=== PATIENT | female | born 1960 | race Caucasian/White ===

== ENCOUNTER 2018-02-26 10:47 | Emergency (ER) | payer MEDICAID ==
[~2018-02-26] VITALS: Ht 165.1 cm; Wt 104.3 kg
[~2018-02-26 10:47] MED LIST: CRESTOR; GABAPENTIN; NAPROXEN; PREDNISONE; WELLBUTRIN; ZOLOFT; ZOVIRAX; ZYPREXA
[2018-02-26 10:49] VITALS: BP_SYST 107
[2018-02-26 11:27] LABS: BILIRUBIN,URINE NEGATIVE (NEGATIVE); BLOOD, URINE 2+ (NEGATIVE); CLARITY/URINE SLIGHTLY HAZY (CLEAR); COLOR,URINE YELLOW (YELLOW); GLUCOSE,URINE NEGATIVE (NEGATIVE); KETONES,URINE NEGATIVE (NEGATIVE); LEUKOCYTE ESTERASE ,URINE TRACE (NEGATIVE); NITRITE, URINE POSITIVE (NEGATIVE); PROTEIN URINE NEGATIVE (NEGATIVE); UROBILINOGEN,URINE 0.2 (0.2-1.0)
[2018-02-26 11:32] LABS: BACTERIA,URINE FEW /HPF (None Seen); RBC,URINE 0-3 /HPF (0-3)
[2018-02-26 11:33] LABS: MUCUS,URINE None Seen /LPF (None Seen)
[2018-02-26 11:34] LABS: BASOPHILS % (AUTO) 0.1 % (0.0-2.0); EOSINOPHILS % (AUTO) 0.1 % (0.0-4.0); HEMATOCRIT 41.1 % (36-48); HEMOGLOBIN 13.7 g/dL (12.0-16.0); LYMPHOCYTES # (AUTO) 1.5 K/uL (1.0-5.5); LYMPHOCYTES % (AUTO) 12.7 % (20.5-51.5); MEAN CORPUSCULAR HEMOGLOBIN 31 pg (27-31); MEAN CORPUSCULAR HGB CONC 33 % (32-36); MEAN CORPUSCULAR VOLUME 91 fL (79.0-98.0); MONOCYTES # (AUTO) 0.6 K/uL (0.0-1.0); MONOCYTES % (AUTO) 5.1 % (1.7-9.3); NEUTROPHILS # (AUTO) 9.7 K/uL (1.8-7.7); PLATELET COUNT (AUTO) 158 K/uL (130-430); RED BLOOD CELL COUNT(AUTO) 4.49 MIL/uL (4.2-6.2); RED CELL DISTRIBUTION WIDTH 12.4 % (9.0-15.0); WHITE BLOOD COUNT (AUTO) 11.8 K/uL (4.8-10.8)
[2018-02-26 11:42] LABS: CALCIUM 9.4 mg/dL (8.4-11.0); CREATININE 0.63 mg/dL (0.55-1.30); POTASSIUM 3.9 mmol/L (3.5-5.1)
[2018-02-26 11:46] LABS: PROTHROMBIN TIME 10.3 SECS (9.5-12.5)
[2018-02-26 11:48] LABS: ALBUMIN 3.9 g/dL (3.4-4.8); TOTAL BILIRUBIN 0.2 mg/dL (0.0-1.0)
[2018-02-26] MEDS ORDERED: cefTRIAXone 1 GM in LIDOCAINE 1%, 20 ML MDV 2.1 ML IM ONE (12:15)
[2018-02-26 12:22] VITALS: BP_SYST 111
== END 2018-02-26 12:22 | disposition home or self-care (01) ==
LOC: SED 10:47
DX: N12 Tubulo-interstitial nephritis, not specified as acute or chronic (principal); J44.9 Chronic obstructive pulmonary disease, unspecified; E11.9 Type 2 diabetes mellitus without complications; F31.9 Bipolar disorder, unspecified; Z88.5 Allergy status to narcotic agent
CPT/HCPCS: 36415; 74176; 80053; 81000; 81025; 83690; 85025; 85610; 85730; 87086; 96372; 99285; J0696; J2001; 87186-TC

== ENCOUNTER 2018-07-27 15:06 | Inpatient (IN) | payer MEDICAID ==
[~2018-07-27] VITALS: Ht 157.5 cm; Wt 102.5 kg
[2018-07-27 15:10] VITALS: BP_SYST 132
[2018-07-27 16:11] LABS: BASOPHILS # (AUTO) 0.1 K/uL (0.0-0.2); BASOPHILS % (AUTO) 0.7 % (0.0-2.0); EOSINOPHILS % (AUTO) 0.1 % (0.0-4.0); HEMATOCRIT 43.3 % (36-48); HEMOGLOBIN 14.2 g/dL (12.0-16.0); LYMPHOCYTES % (AUTO) 12.8 % (20.5-51.5); MEAN CORPUSCULAR HEMOGLOBIN 30 pg (27-31); MEAN CORPUSCULAR HGB CONC 33 % (32-36); MEAN CORPUSCULAR VOLUME 92 fL (79.0-98.0); MONOCYTES # (AUTO) 0.3 K/uL (0.0-1.0); MONOCYTES % (AUTO) 3.6 % (1.7-9.3); NEUTROPHILS # (AUTO) 6.8 K/uL (1.8-7.7); NEUTROPHILS % (AUTO) 82.8 % (40.0-70.0); PLATELET COUNT (AUTO) 155 K/uL (130-430); RED BLOOD CELL COUNT(AUTO) 4.72 MIL/uL (4.2-6.2); RED CELL DISTRIBUTION WIDTH 12.6 % (9.0-15.0); WHITE BLOOD COUNT (AUTO) 8.2 K/uL (4.8-10.8)
[2018-07-27 16:18] LABS: CALCIUM 9.5 mg/dL (8.4-11.0); CREATININE 0.71 mg/dL (0.55-1.30); POTASSIUM 3.9 mmol/L (3.5-5.1)
[2018-07-27 16:23] LABS: ALBUMIN 4.4 g/dL (3.4-4.8); TOTAL BILIRUBIN 0.4 mg/dL (0.0-1.0)
[2018-07-27] MEDS ORDERED: NACL 0.9% 1,000 ML IV ONE ×2 (16:55→20:30)
[2018-07-27] MEDS ORDERED: fentaNYL CITRATE/PF 100 MCG/2 ML AMP IVP ONE ×2 (17:00→21:15)
[2018-07-27] MEDS ORDERED: DIPHENHYDRAMINE INJ 50 MG/ML VIAL IVP ONE (17:00)
[2018-07-27] MEDS ORDERED: METOCLOPRAMIDE HCL 10 MG/2 ML VIAL IVP ONE (17:00)
[2018-07-27] MEDS ORDERED: PANTOPRAZOLE SODIUM 40 MG/VIAL (PROTONIX) IVP ONE (17:45)
[2018-07-27 17:53] LABS: BILIRUBIN,URINE NEGATIVE (NEGATIVE); CLARITY/URINE CLEAR (CLEAR); COLOR,URINE YELLOW (YELLOW); GLUCOSE,URINE NEGATIVE (NEGATIVE); KETONES,URINE 1+ (NEGATIVE); LEUKOCYTE ESTERASE ,URINE 1+ (NEGATIVE); NITRITE, URINE POSITIVE (NEGATIVE); PROTEIN URINE TRACE (NEGATIVE); UROBILINOGEN,URINE 0.2 (0.2-1.0)
[2018-07-27 18:00] LABS: BLOOD, URINE TRACE (NEGATIVE)
[2018-07-27 18:01] LABS: BACTERIA,URINE MANY /HPF (None Seen); MUCUS,URINE None Seen /LPF (None Seen); RBC,URINE 0-3 /HPF (0-3)
[2018-07-27] MEDS ORDERED: cefTRIAXone 1 GM IVPB PREMIX 50 ML IV ONE (18:15)
[2018-07-27] MEDS ORDERED: ONDANSETRON HCL 4 MG/2 ML VIAL IVP ONE ×2 (20:15→21:15)
[2018-07-27] MEDS ORDERED: PRAV80TA PO (20:56)
[2018-07-27] MEDS ORDERED: PRAM0.253 PO (20:56)
[2018-07-27] MEDS ORDERED: SITA100T11 PO (20:56)
[2018-07-27] MEDS ORDERED: ESCI10TA PO (20:56)
[2018-07-27] MEDS ORDERED: GABA800T PO (20:56)
[2018-07-27] MEDS ORDERED: BUSP10TA3 PO (20:56)
[2018-07-27] MEDS ORDERED: WELSR150 PO (20:56)
[2018-07-27] MEDS ORDERED: ARIP20TA4 PO (20:56)
[2018-07-27] MEDS ORDERED: CLON0.5T12 PO (20:58)
[2018-07-27] MEDS ORDERED: HYDR-3610 PO (20:58)
[2018-07-27] MEDS ORDERED: CARI350T27 PO (20:58)
[2018-07-27] MEDS ORDERED: INSULIN REGULAR, HUMAN 100 UNITS/ML, 10 ML VIAL (novoLIN R) SUBCUT PRN (21:15)
[2018-07-27] MEDS ORDERED: ONDANSETRON HCL 4 MG/2 ML VIAL IVP PRN (21:15)
[2018-07-27] MEDS ORDERED: MORPHINE 4 MG/ML INJ. SYRINGE IVP ONE (21:15)
[2018-07-27 21:46] VITALS: BP_SYST 152
[2018-07-27] MEDS ORDERED: METOCLOPRAMIDE HCL 10 MG/2 ML VIAL IVP PRN (23:15)
[2018-07-27] MEDS ORDERED: LevALBUTEROL HCL 1.25 MG/0.5 ML *CONC.* VIAL.NEB (XOPENEX CONC.) INH PRN (23:15)
[2018-07-27] MEDS ORDERED: NICOTINE 21 MG/24 HR PATCH.TD24 TD SCH (23:15)
[2018-07-27] MEDS ORDERED: DIPHENHYDRAMINE INJ 50 MG/ML VIAL IVP PRN (23:15)
[2018-07-27] MEDS: HYDROmorphone 2 MG/ML VIAL IVP PRN (23:23)
[2018-07-27 23:41] VITALS: BP_SYST 152
[2018-07-28 00:22] VITALS: BP_SYST 153
[2018-07-28] MEDS ORDERED: KCL 20 mEq in 100 mL (PREMIX) 100 ML IV ONE (01:24)
[2018-07-28] MEDS: POTASSIUM CHLORIDE 20 MEQ in 0.45% NACL 1,000 ML IV SCH ×3 (01:29→11:09)
[2018-07-28] MEDS: GABAPENTIN 400 MG CAPSULE PO SCH ×3 (01:31→11:07)
[2018-07-28] MEDS: CARISOPRODOL 350 MG TABLET PO SCH ×2 (05:24→13:09)
[2018-07-28 07:02] LABS: BASOPHILS % (AUTO) 0.5 % (0.0-2.0); EOSINOPHILS % (AUTO) 0.1 % (0.0-4.0); HEMATOCRIT 37.7 % (36-48); HEMOGLOBIN 12.4 g/dL (12.0-16.0); LYMPHOCYTES # (AUTO) 1.9 K/uL (1.0-5.5); LYMPHOCYTES % (AUTO) 20.4 % (20.5-51.5); MEAN CORPUSCULAR HEMOGLOBIN 30 pg (27-31); MEAN CORPUSCULAR HGB CONC 33 % (32-36); MEAN CORPUSCULAR VOLUME 92 fL (79.0-98.0); MONOCYTES # (AUTO) 0.7 K/uL (0.0-1.0); MONOCYTES % (AUTO) 7.7 % (1.7-9.3); NEUTROPHILS # (AUTO) 6.8 K/uL (1.8-7.7); NEUTROPHILS % (AUTO) 71.3 % (40.0-70.0); PLATELET COUNT (AUTO) 137 K/uL (130-430); RED CELL DISTRIBUTION WIDTH 12.9 % (9.0-15.0); WHITE BLOOD COUNT (AUTO) 9.4 K/uL (4.8-10.8)
[2018-07-28] MEDS: LevALBUTEROL HCL 1.25 MG/0.5 ML *CONC.* VIAL.NEB (XOPENEX CONC.) INH SCH ×2 (07:08→15:31)
[2018-07-28 07:34] LABS: CALCIUM 8.5 mg/dL (8.4-11.0); CREATININE 0.71 mg/dL (0.55-1.30); POTASSIUM 3.8 mmol/L (3.5-5.1)
[2018-07-28 07:46] LABS: ALBUMIN 3.6 g/dL (3.4-4.8); TOTAL BILIRUBIN 0.3 mg/dL (0.0-1.0)
[2018-07-28 08:25] VITALS: BP_SYST 96
[2018-07-28] MEDS: HYDROmorphone 2 MG/ML VIAL IVP PRN (08:52)
[2018-07-28] MEDS ORDERED: buPROPion HCL 150 MG TABLET.SA PO SCH (09:00)
[2018-07-28] MEDS ORDERED: clonazePAM 0.5 MG TABLET PO SCH (09:00)
[2018-07-28] MEDS ORDERED: cefTRIAXone 1 GM IVPB PREMIX 50 ML IV SCH (09:00)
[2018-07-28] MEDS ORDERED: ARIPiprazole 5 MG TAB PO SCH (09:00)
[2018-07-28] MEDS ORDERED: TAMSULOSIN HCL 0.4 MG CAP PO SCH (09:00)
[2018-07-28] MEDS ORDERED: ENOXAPARIN SODIUM 40 MG/0.4 ML SYRINGE SUBCUT SCH (09:00)
[2018-07-28] MEDS ORDERED: busPIRone HCL 5 MG TABLET PO SCH (09:00)
[2018-07-28] MEDS ORDERED: CITALOPRAM HYDROBROMIDE 20 MG TABLET PO SCH (09:00)
[2018-07-28] MEDS ORDERED: ATORVASTATIN 20 MG TABLET PO SCH (09:00)
[2018-07-28 12:32] VITALS: BP_SYST 100
[2018-07-28 15:36] VITALS: BP_SYST 92
[2018-07-28] MEDS ORDERED: PRAMIPEXOLE DI-HCL 0.25 MG TABLET PO SCH (21:00)
== END 2018-07-28 16:50 | disposition home or self-care (01) | DRG 463 ==
LOC: EDBD 15:06 → SED 15:06 → SMU 21:15 → MERGE 21:15 → SMU 21:42
PROVIDERS: ADMIT Family Medicine; ATTEND Family Medicine
DX: N39.0 Urinary tract infection, site not specified (principal); E11.9 Type 2 diabetes mellitus without complications; F17.200 Nicotine dependence, unspecified, uncomplicated; K52.9 Noninfective gastroenteritis and colitis, unspecified; K57.90 Diverticulosis of intestine, part unspecified, without perforation or abscess without bleeding; F31.9 Bipolar disorder, unspecified; N20.0 Calculus of kidney; Z87.442 Personal history of urinary calculi; Z79.899 Other long term (current) drug therapy; Z79.84 Long term (current) use of oral hypoglycemic drugs; Z90.49 Acquired absence of other specified parts of digestive tract; Z90.710 Acquired absence of both cervix and uterus
CPT/HCPCS: 36415; 76700-TC; 80053; 81000-TC; 82962; 83605; 83690-TC; 84484; 85025; 87040-TC; 87086; 87186-TC; 93005; 94640; 94760; 96361; 96365; 96375; 96376; 99285; C9113; J0696; J1170; J1200; J1650; J1815; J2405; J2765; J3010; J3480; J7030; J7612